=== PATIENT | male | born 1950 | race Caucasian/White ===

== ENCOUNTER 2016-07-21 01:31 | Emergency (ER) ==
[2016-07-21] MEDS ORDERED: DUONEB (A & A) INH ONE (01:40)
[2016-07-21] MEDS ORDERED: SOLU-MEDROL IV ONE (01:41)
[2016-07-21] MEDS ORDERED: TORADOL IM ONE (01:43)
--- NOTE | 2016-07-21 01:46 | PROVIDER DOCUMENTATION ---
HPI-General Adult - History of Present Illness -Gen Adult Nature of Presenting Problems: Pt states he was drinking tonight and fell on his right side but is having left shoulder pain with decreased ROM. He states that he drinks daily and does not want to quit. <Rakesh Enriquez - Last Filed: 07/21/16 01:56> <Kev Cisneros - Last Filed: 07/21/16 03:09> <Rogelio Hernandez - Last Filed: 07/21/16 03:13> - General Chief Complaint: Fall Stated Complaint: fall Time Seen by Provider: 07/21/16 01:38 Allergies/Adverse Reactions: Patient Allergies Allergy/AdvReac Type Severity Reaction Status Date / Time No Known Allergies Allergy Verified 07/21/16 01:43 Home Medications: Home Medication List Medication Instructions Recorded Confirmed Last Taken Type Azithromycin [Zithromax Z-Patricio] 250 mg PO DIRECTED #1 pkg 07/21/16 Unknown Rx Chlorpheniramine/Codeine Phos 473 ml PO BID #1 liquid 07/21/16 Unknown Rx [Chlorpheniramine-Codeine Liq] Hydrocodone/Acetaminophen [Thornwood 1 each PO Q4-6H PRN PRN #20 tablet 07/21/16 Unknown Rx 7.5-325 Tablet] Prednisone 20 mg PO DAILY #40 tablet 07/21/16 Unknown Rx Review of Systems - Adult - REVIEW OF SYSTEMS - ADULT Constitutional: reports: no symptoms reported. denies: chills, fever, fatique, night sweats, weight gain Eyes: reports: no symptoms reported. denies: discharge, dry eyes, decreased vision, blurred vision, double vision, eye pain, redness Ears, Nose, Mouth & Throat: reports: no symptoms reported. denies: ear discharge, ear pain, tinnitus, epistaxis, nose pain, mouth/dental pain, mouth swelling, hoarseness, throat pain, throat swelling Cardiovascular: reports: no symptoms reported. denies: chest pain, edema, heart murmur, orthopnea, palpitations, poor circulation, PND, syncope Respiratory: reports: see HPI, cough, wheezing. denies: chronic cough, dyspnea on exertion, excessive sputum production, hemoptysis, pleurisy, shortness of breath Gastrointestinal: reports: no symptoms reported. denies: abdominal pain, hematemesis, constipation, diarrhea, difficulty swallowing, frequent heartburn, nausea, poor appetite, rectal bleeding, vomiting Genitourinary: reports: no symptoms reported. denies: dysuria, discharge, frequency, flank pain, hematuria, incontinence, urinary retention, urgency Musculoskeletal: reports: see HPI, joint pain, joint swelling. denies: bone pain, back pain, muscle aches, muscle weakness, neck pain Integumentary: reports: no symptoms reported. denies: hives, hair loss, itching , mole changes, nail changes, skin sores/ulcer, skin thickening Neurological: reports: no symptoms reported. denies: ataxia, dizziness/vertigo , headache/migraines, loss of balance, numbness, seizure, slurred speech, syncope, tremors Psychiatric: reports: alcohol/drug dependence. denies: anxiety, anti- depressant use, depression, emotional problems, insomnia, panic attacks, suicidal thoughts Endocrine: reports: no symptoms reported. denies: change in skin pigment, excessive sweating, goiter, cold intolerance, increased hunger, increased thirst Hematologic/Lymphatic: reports: no symptoms reported. denies: blood clots, easy bruising, low blood count, prolonged bleeding, swollen lymph nodes Allergic/Immunologic: reports: no symptoms reported. denies: allergic reactions , allergic rhinitis, food allergy, frequent infections, hay fever, positive PPD , urticaria All Other Systems: Reviewed and Negative <Rakesh Enriquez - Last Filed: 07/21/16 01:56> Past History - Adult - PAST MEDICAL HISTORY-ADULT Review of Records: reports: Old Records Reviewed, Nursing Assessment Review, Medications Reviewed, Social history reviewed & non-contributory. Major Childhood Illnesses: reports: denies history Cardiovascular: reports: denies history Respiratory: reports: denies history Gastrointestinal: reports: denies history Obstetrical/Gynecological: reports: denies history Genitourinary: reports: denies history Musculoskeletal: reports: denies history Neurological: reports: denies history Endocrine/Immune: reports: denies history Other Conditions: reports: denies history - PRIOR SURGERIES/PROCEDURES Surgical/Procedure History: reports: reviewed, not pertinent - PRIOR HOSPITALIZATIONS Prior Hospitalizations: reports: none - IMMUNIZATION STATUS Childhood Immunizations: See Nurse Assessment Flu Vaccine: See Nurse Assessment - FAMILY HISTORY Family History: reviewed, not pertinent - SOCIAL HISTORY Smoking: denies Substance Use: alcohol Alcohol Use Frequency: every day Number of drinks per typical drinking period:: 11-15 drinks Living Situation: alone <Rakesh Enriquez - Last Filed: 07/21/16 01:56> Physical Exam-General - PHYSICAL EXAM-ADULT Initial Vital Signs Reviewed: Yes - CONSTITUTIONAL General Appearance: appears well, alert, no apparent distress, obese - EYES Eyes: PERRL/EOMI, pink conjunctivae - HEAD, EARS, NOSE, MOUTH & THROAT HENMT: normocephalic/atraumatic, moist mucous membranes, normal ENT inspection - NECK Neck: non-tender, full range of motion, supple - RESPIRATORY Respiratory: chest non-tender, no respiratory distress, no accessory muscle use , wheezing - CARDIOVASCULAR Cardiovascular: normal peripheral pulses, regular rate, rhythm - GASTROINTESTINAL (ABDOMEN) Abdominal Exam: normal bowel sounds, non tender, soft - GENITOURINARY Male Genitalia: deferred - MUSCULOSKELETAL Back Exam: normal inspection, no CVA tenderness, no vertebral tenderness Extremity: normal range of motion, non-tender, normal gait, pedal edema - SKIN Integumentary: normal color, normal turgor, warm/dry - NEUROLOGIC Neurologic: php website developer II-XII nml as tested, grossly normal - PSYCHIATRIC Psych/Mental Status: normal mood/affect, normal thought content, normal thought process, oriented x 3 <Rakesh Enriquez - Last Filed: 07/21/16 01:56> Progress - PLAN OF CARE/RESULTS Progress/Plan/Lab Results: Orders Category Date Time Status SHOULDER-LEFT [RAD] Stat Exams 07/21/16 01:40 Ordered cxr [CHEST-2 VIEWS] [RAD] Stat Exams 07/21/16 01:39 Ordered Albuterol 2.5MG/Ipratrop 0.5MG [Duoneb (A & A)] Med 07/21/16 01:40 Discontinued 3 ml INH NOW ONE Ketorolac [Toradol] Med 07/21/16 01:43 Discontinued 30 mg IM NOW ONE Methylprednisolone Sod Succ [Solu-Medrol] Med 07/21/16 01:41 Stop Req 125 mg IV NOW ONE Prednisone Med 07/21/16 01:50 Discontinued 40 mg PO NOW ONE Aerosol Treatments Routine Oth 07/21/16 01:40 Completed Aerosol Treatments Stat Oth 07/21/16 01:40 Completed Orders Category Date Time Status SHOULDER-LEFT [RAD] Stat Exams 07/21/16 01:40 Ordered cxr [CHEST-2 VIEWS] [RAD] Stat Exams 07/21/16 01:39 Ordered Albuterol 2.5MG/Ipratrop 0.5MG [Duoneb (A & A)] Med 07/21/16 01:40 Discontinued 3 ml INH NOW ONE Ketorolac [Toradol] Med 07/21/16 01:43 Discontinued 30 mg IM NOW ONE Methylprednisolone Sod Succ [Solu-Medrol] Med 07/21/16 01:41 Stop Req 125 mg IV NOW ONE Prednisone Med 07/21/16 01:50 Discontinued 40 mg PO NOW ONE Aerosol Treatments Routine Oth 07/21/16 01:40 Completed Aerosol Treatments Stat Oth 07/21/16 01:40 Completed Vital Signs - 24 hr 07/21/16 07/21/16 01:34 01:49 Temperature 97.5 F L Pulse Rate 72 88 Respiratory 20 15 Rate Blood Pressure 182/92 O2 Sat by Pulse 95 Oximetry - CHANGE OF SHIFT REPORT (ED Provider) Report Given and Care Transferred to:: [facility] Time of Transfer: 01:57 Items Pending: XRAY Results, Pain Control Tentative Impression of Patient: uri, shoulder pain <Rakesh Enriquez - Last Filed: 07/21/16 01:56> - PLAN OF CARE/RESULTS Progress/Plan/Lab Results: Vital Signs - 24 hr 07/21/16 07/21/16 07/21/16 01:34 01:49 02:25 Temperature 97.5 F L Pulse Rate 72 88 73 Respiratory 20 15 22 Rate Blood Pressure 182/92 157/90 O2 Sat by Pulse 95 96 Oximetry Orders Category Date Time Status Shoulder Immobilizer DIRECTED Care 07/21/16 03:09 Active SHOULDER-LEFT [RAD] Stat Exams 07/21/16 01:40 Taken SHOULDER-LEFT [RAD] Stat Exams 07/21/16 02:54 Taken cxr [CHEST-2 VIEWS] [RAD] Stat Exams 07/21/16 01:39 Taken Albuterol 2.5MG/Ipratrop 0.5MG [Duoneb (A & A)] Med 07/21/16 01:40 Discontinued 3 ml INH NOW ONE Ketorolac [Toradol] Med 07/21/16 01:43 Discontinued 30 mg IM NOW ONE Lidocaine 1% [Xylocaine 1%] Med 07/21/16 02:17 Discontinued 20 ml INJ NOW ONE Methylprednisolone Sod Succ [Solu-Medrol] Med 07/21/16 01:41 Discontinued 125 mg IV NOW ONE Prednisone Med 07/21/16 01:50 Discontinued 40 mg PO NOW ONE Aerosol Treatments Routine Oth 07/21/16 01:40 Completed Aerosol Treatments Stat Oth 07/21/16 01:40 Completed - XRAY 1 XRAY: Bilateral XRAY Study: Chest Impression: See EMR Report XRAY Interpretation: L shoulder Anterior dislocation; Chest is normal 2 XRAY: Left XRAY Study: Shoulder Impression: See EMR Report XRAY Interpretation: Reduction was successful, shoulder has been successfully reduced - CHANGE OF SHIFT REPORT (ED Provider) Report Given and Care Transferred to:: Dr. Cisneros Items Pending: XRAY Results <Rogelio Hernandez - Last Filed: 07/21/16 03:13> Procedures - DISLOCATION REDUCTION Left Shoulder Time-Out Verification Completed?: Yes Conscious Sedation: No Post Reduction Film: Deformity Reduced Procedure Comment: 20cc of 1% pratibha <Rogelio Hernandez - Last Filed: 07/21/16 03:13> Departure - Departure Time of Disposition Order: 01:58 Certified Medical Emergency: Emergent <Rakesh Enriquez - Last Filed: 07/21/16 01:56> - Departure Time of Disposition Order: 03:10 Certified Medical Emergency: Emergent <Kev Cisneros - Last Filed: 07/21/16 03:09> - Departure Time of Disposition Order: 03:12 Certified Medical Emergency: Emergent <Rogelio Hernandez - Last Filed: 07/21/16 03:13> - Departure DIAGNOSIS: URI (upper respiratory infection) Qualifiers: URI type: unspecified URI Qualified Code(s): J06.9 - Acute upper respiratory infection, unspecified Dislocation, shoulder, anterior Qualifiers: Encounter type: initial encounter Laterality: left Qualified Code(s): S43.015A - Anterior dislocation of left humerus, initial encounter Disposition: HOME 01 Condition: Good Additional Instructions: call Dr Scott's office on Friday to arrange a follow up visit ED Follow Up Instructions: You have been treated by a care provider in the Emergency Department. These instructions are being provided to you so you can have an understanding of how to care for yourself upon discharge. Upon discharge from the Emergency Department, you are responsible for making arrangements for follow-up care by a physician of your choice. Take all prescribed medications as directed. Return to the Emergency Department immediately for any new or worsening symptoms. You may call the Physician Referral phone number at [phone] to obtain a list of Physicians who are taking new patients. ED Follow Up Instructions: You have been treated by a care provider in the Emergency Department. These instructions are being provided to you so you can have an understanding of how to care for yourself upon discharge. Upon discharge from the Emergency Department, you are responsible for making arrangements for follow-up care by a physician of your choice. Take all prescribed medications as directed. Return to the Emergency Department immediately for any new or worsening symptoms. You may call the Physician Referral phone number at [phone] to obtain a list of Physicians who are taking new patients. Prescriptions: Chlorpheniramine/Codeine Phos [Chlorpheniramine-Codeine Liq] 473 ml PO BID #1 liquid Hydrocodone/Acetaminophen [Thornwood 7.5-325 Tablet] 1 each PO Q4-6H PRN PRN #20 tablet PRN Reason: Pain Prednisone 20 mg PO DAILY #40 tablet Azithromycin [Zithromax Z-Patricio] 250 mg PO DIRECTED #1 pkg Referrals: None,PCP [Primary Care Provider] - Jesus Scott MD [STAFF PHYSICIAN] - Attestation - Physician/ ALFREDA Attestation Patient care was provided by Advanced Practice Provider:: Yes Advanced Practice Provider:: Rakesh Enriquez Advanced Practice Provider documentation review:: The Mid-level provider documentation, treatment plan and medical decision making was reviewed by the physician who agrees with all treatment and medical decision making by the MLP. <Rakesh Enriquez - Last Filed: 07/21/16 01:56> - Scribe Verification/Attestation Scribe:: Rogelio Hernandez Acting as Scribe for:: Kev Cisneros Scribe documention review:: This chart was documented by a scribe and accurately reflects the service the provider performed and the decisions made by the provider. <Rogelio Hernandez - Last Filed: 07/21/16 03:13> Physician Attestation
[2016-07-21] MEDS ORDERED: PREDNISONE PO ONE (01:50)
[2016-07-21] MEDS ORDERED: XYLOCAINE 1% INJ ONE (02:17)
[2016-07-21 02:26] VITALS: BP 157/90
--- NOTE | 2016-07-21 10:03 | Diag Imaging Result Document ---
PROCEDURE NAME: SHOULDER-LEFT - 07/21/2016 LEFT SHOULDER 3 VIEWS: FINDINGS: There is an anterior inferior dislocation of the humeral head. There may be a Bankart injury. There are degenerative changes in the acromioclavicular joint. The possibility of a Hill- Sachs deformity is also suspected. IMPRESSION: Dislocation.
--- NOTE | 2016-07-21 10:05 | Diag Imaging Result Document ---
PROCEDURE NAME: CHEST-2 VIEWS - 07/21/2016 TWO VIEWS OF THE CHEST: FINDINGS: There is a prominent epicardial fat pad on the left. There is a granuloma over the right base. A dislocated shoulder on the left is again noted. There are no previous studies. The heart size and pulmonary vascularity appear to be within normal limits. IMPRESSION: Anterior shoulder dislocation on the left. No evidence of acute cardiopulmonary disease.
--- NOTE | 2016-07-21 10:16 | Diag Imaging Result Document ---
PROCEDURE NAME: SHOULDER-LEFT - 07/21/2016 LEFT SHOULDER 2 VIEWS: FINDINGS: The dislocation has apparently been reduced. There is no external rotation view. The possibility of Hill-Sachs and Bankart injuries cannot be excluded. IMPRESSION: Reduction of dislocation.
== END 2016-07-21 04:30 | disposition home or self-care (01) ==
LOC: EDBD → ED 01:31
DX: S43.015A Anterior dislocation of left humerus, initial encounter (principal); J06.9 Acute upper respiratory infection, unspecified; R05 Cough; R06.2 Wheezing; W19.XXXA Unspecified fall, initial encounter; M25.512 Pain in left shoulder; M25.412 Effusion, left shoulder; E66.9 Obesity, unspecified
CPT/HCPCS: 71020; 94640; J1885; J7512